=== PATIENT | male | born 1965 | race Caucasian/White ===

== ENCOUNTER 2022-12-24 08:47 | Inpatient (IN) | payer MEDICARE, MEDICAID ==
[2022-12-16 14:33] LABS: BASOPHILS # (AUTO) 0.1 X10'3 (0-0.2); BASOPHILS % (AUTO) 0.9 % (0-1); EOSINOPHILS # (AUTO) 0.2 X10'3 (0-0.9); EOSINOPHILS % (AUTO) 3.1 % (0-6); LYMPHOCYTES # (AUTO) 2.2 X10'3 (1.1-4.8); LYMPHOCYTES % (AUTO) 27.2 % (21-51); MEAN CORPUSCULAR HEMOGLOBIN 29.5 PG (27.0-31.0); MEAN CORPUSCULAR HGB CONC 33.3 g/dL (33.0-36.5); MEAN CORPUSCULAR VOLUME 88.7 FL (78-98); MEAN PLATELET VOLUME 7.4 FL (7.4-10.4); MONOCYTES # (AUTO) 0.5 X10'3 (0-0.9); MONOCYTES % (AUTO) 6.5 % (2-12); NEUTROPHILS % (AUTO) 62.3 % (42-75); PRE OP HEMATOCRIT 40.8 % (42.0-52.0); PRE OP HEMOGLOBIN 13.6 g/dL (14.0-17.9); PRE OP PLATELET COUNT 279 X10'3 (140-440); RED CELL DISTRIBUTION WIDTH 13.6 % (11.5-14.5)
[2022-12-16 14:42] LABS: ALBUMIN/GLOBULIN RATIO 1.3 (1.1-1.5); ALKALINE PHOSPHATASE 104 IU/L (46-116); BLOOD UREA NITROGEN 4 MG/DL (7-18); BUN/CREATININE RATIO 3.8 (10.0-20.0); CALCIUM 8.8 MG/DL (8.5-10.1); CHLORIDE 106 MMOL/L (99-107); CREATININE 1.04 MG/DL (0.60-1.10); PRE OP ALT 26 U/L (30-65); PRE OP ANION GAP 7 (8-16); PRE OP AST 14 U/L (10-37); PRE OP BILIRUB, TOTAL 0.3 MG/DL (0.0-1.0); PRE OP GLUCOSE 110 MG/DL (70-104); PRE OP POTASSIUM 3.8 MMOL/L (3.4-5.1); PRE OP SODIUM 140 MMOL/L (135-145); TOTAL CARBON DIOXIDE 26.7 MMOL/L (24-32); TOTAL PROTEIN 7.2 G/DL (6.4-8.2); eGFR 74 ML/MIN
[~2022-12-24] VITALS: Ht 182.9 cm; Wt 114.2 kg
[2022-12-24] VITALS (20 sets, daily range): BP systolic 112–143; BP diastolic 73–97; PULSE 58–91; RESP 12–18; TEMP 97.6–97.7; O2SAT 91–97
[~2022-12-24 08:47] MED LIST: AMIT100T61 PO; ARIP15TA19 PO; ASPI81TA52 PO; ATOR20TA66 PO; BENZ1TAB78 PO; CELE-28 PO; DILT180C66 PO; DOCUMENT DATE & TIME OF BETA-BLOCKER PO ONE; GABA600T13 PO; LATA2.5D14 EACHEYE; LISI40TA13 PO; MAGN500C4 PO; MESA400C4 PO; PANT-47 PO; PROP10TA10 PO; QUET-1 PO; TOPI25TA15 PO; albuterol 2.5 MG/3 ML nebule NEB ONE; cefazolin 2gm/D5W 100mL 100 ML IV ONE; famotidine 20mg tablet PO ONE; ringers solution, lacted 1,000 ML IV SCH; tranexamic acid 650mg tablet PO ONE; vancomycin 1,500 MG in NS 300ml IV soln IV ONE
--- NOTE | 2022-12-24 10:15 | NUR ---
PT STATES HE USED THE [facility], AND SHOWERED FOR THE LAST 5 DAYS PER T[employer] JOINT PROTOCOL RECOMMENDATIONS, HE DENIED DECREASED SENSATION TO LEFT HAND/ARM, DID NOT WATCH THE DVD THIS IS A REVISION, HE HAD THIS SX 3 MONTHS AGO. Addendum: 12/24/22 at 1543 by Brittany Nicholson RN Amended: Links added.
[2022-12-24] MEDS ORDERED: ketorolac trometh. 30mg/ml inj. ONE (12:26)
[2022-12-24] MEDS ORDERED: ROPIVAcaine 0.5% (5mg/ml) 30ml vial ONE ×2 (12:26→12:36)
[2022-12-24] MEDS ORDERED: ROPIVAcaine 0.5% (5mg/ml) 30ml vial IJ ONE (12:30)
[2022-12-24] MEDS ORDERED: fentaNYL/PF 50MCG/1 ML 2ML syringe ONE (12:35)
[2022-12-24] MEDS ORDERED: midazolam 1 mg/ML 2ml injection ONE ×2 (12:35→12:36)
[2022-12-24] MEDS ORDERED: propofol inj 20 ML IV ONE (12:36)
[2022-12-24] MEDS ORDERED: proCHLORperazine 10 MG/2 ml inj IV PRN (12:50)
[2022-12-24] MEDS ORDERED: morphine 2 MG/ML inj. syringe IV PRN (12:50)
[2022-12-24] MEDS ORDERED: ondansetron/PF 4mg/2ml inj IV PRN ×2 (12:50→14:45)
[2022-12-24] MEDS ORDERED: meperidine/PF 25mg/ml syringe IV PRN ×3 (12:50)
[2022-12-24] MEDS ORDERED: ROPIVAcaine 0.2% (10 MG/5 ML) BOLUS INJECTION INTERSCALE PRN (12:50)
[2022-12-24] MEDS ORDERED: ROPIVAcaine 0.2%/PF PUMP/bolus 545 ML INTERSCALE SCH (12:50)
[2022-12-24] MEDS ORDERED: morphine 4 MG/ML inj SYRINge IV PRN (12:50)
[2022-12-24] MEDS ORDERED: ringers solution, lacted 1,000 ML IV SCH (12:50)
[2022-12-24] MEDS ORDERED: sevoflurane 250ml liquid IH ONE (12:53)
[2022-12-24] MEDS ORDERED: ondansetron/PF 4mg/2ml inj ONE (14:27)
[2022-12-24] MEDS ORDERED: dexamethasone sod phosphate 4mg/ml inj. ONE (14:27)
--- NOTE | 2022-12-24 14:38 | NUR ---
Received from OR via HOSPITAL BED, accompanied by Anesthesiologist and report given by JULIAN Anesthesiologist. PATIENT WAKING UP, DENIES PAIN, V/S WNL, SCD ON , PIV 20G RIGHT HAND, DRESSING SHOULDER WRAP TO LEFT SIDE C/D/I W/ ONQ AT 2ML/HR AND COLD POWDER PACK AND ARM SLING. Addendum: 12/24/22 at 1507 by Yusef Lackey RN Amended: Links added.
[2022-12-24] MEDS ORDERED: HYDROmorphone 1 mg/ml syringe IV PRN (14:45)
[2022-12-24] MEDS ORDERED: acetaminophen 325mg tablet PO PRN (14:45)
[2022-12-24] MEDS ORDERED: bisacodyl 10mg suppository rectal RC PRN (14:45)
[2022-12-24] MEDS ORDERED: oxyCODONE IR 5mg (immed. release) tablet PO PRN ×2 (14:45)
[2022-12-24] MEDS ORDERED: diphenhydrAMINE 25mg capsule PO PRN ×2 (14:45)
[2022-12-24] MEDS ORDERED: naloxone 0.4 mg/ml inj IV PRN (14:45)
[2022-12-24] MEDS ORDERED: magnesium hydroxide 30ml (MOM) UD suspension PO PRN (14:45)
[2022-12-24] MEDS ORDERED: HYDROmorphone inj. 0.5 MG/0.5 ML DISP.SYRIN IV PRN (14:45)
[2022-12-24] MEDS ORDERED: HYDROcodone/acetaminophen 10/325mg tab PO PRN ×2 (14:45)
--- NOTE | 2022-12-24 16:38 | NUR ---
PATIENT HAS MET ALL CRITERIA FOR TRANSFER TO ORTHO FLOOR. VSS. DRESSINGS INTACT. BED LOW, CALL LIGHT PRESENT AND 2 RAILS UP. RN PRESENT TO ACCEPT CARE OF PATIENT AND REPORT HAS BEEN CALLED. ALL QUESTIONS ANSWERED TO ACCEPTING RN. Addendum: 12/24/22 at 1648 by Yusef Lackey RN Amended: Links added.
--- NOTE | 2022-12-24 18:00 | NUR ---
I have reviewed and agree with documentation by Puja Gonzalez LVN.
[2022-12-24] MEDS ORDERED: vancomycin/NS 1 GM ADD-VANTAGE 250 ML IV SCH (20:00)
[2022-12-24] MEDS: diltiazem CD 180mg cap (once-daily) PO SCH (20:00)
[2022-12-24] MEDS: mesalamine 400mg delayed-release capsule PO SCH (20:00)
[2022-12-24] MEDS: potassium cl 20mEq in 1/2 NS 1,000 ML IV SCH ×2 (20:59→22:45)
[2022-12-24] MEDS ORDERED: ARIPIPRAZOLE 15 MG TABLET PO SCH (21:00)
[2022-12-24] MEDS ORDERED: amitriptyline 50mg tablet PO SCH (21:00)
[2022-12-24] MEDS ORDERED: latanoprost 0.005% 2.5ml ophthalmic drops EACHEYE SCH (21:00)
[2022-12-24] MEDS ORDERED: quetiapine 100mg tablet PO SCH (21:00)
[2022-12-24] MEDS ORDERED: propranolol 10mg tablet PO SCH (21:00)
[2022-12-24] MEDS ORDERED: sennosides 8.6mg tablet PO SCH (21:00)
[2022-12-24] MEDS ORDERED: atorvastatin 20mg tablet PO SCH (21:00)
[2022-12-24] MEDS ORDERED: magnesium oxide 400mg tablet PO SCH (21:00)
[2022-12-24] MEDS ORDERED: topiramate 25mg tablet PO SCH (21:00)
[2022-12-24] MEDS ORDERED: benztropine 1mg tablet PO SCH (21:00)
[2022-12-24] MEDS: ceFAZolin/D5W- 1GM premix 50 ML IV SCH (21:12)
[2022-12-24] MEDS: acetaminophen 325mg tablet PO SCH (21:17)
[2022-12-24] MEDS: gabapentin 300mg capsule PO SCH (21:18)
[2022-12-25 02:00] VITALS: BP 121/81; PULSE 84; RESP 18; TEMP 97.8; O2SAT 91
[2022-12-25] MEDS: acetaminophen 325mg tablet PO SCH ×2 (02:30→08:40)
[2022-12-25] MEDS: ceFAZolin/D5W- 1GM premix 50 ML IV SCH (04:54)
[2022-12-25 06:00] VITALS: BP 132/94; PULSE 85; RESP 16; TEMP 98.3; O2SAT 95
[2022-12-25] MEDS: potassium cl 20mEq in 1/2 NS 1,000 ML IV SCH (06:45)
[2022-12-25 07:06] LABS: BASOPHILS % (AUTO) 0.2 % (0-1); EOSINOPHILS % (AUTO) 0 % (0-6); HEMATOCRIT 41.2 % (42.0-52.0); HEMOGLOBIN 13.6 g/dl (14.0-17.9); LYMPHOCYTES # (AUTO) 0.9 X10'3 (1.1-4.8); LYMPHOCYTES % (AUTO) 4.6 % (21-51); MEAN CORPUSCULAR HEMOGLOBIN 29.3 PG (27.0-31.0); MEAN CORPUSCULAR VOLUME 88.9 FL (78-98); MEAN PLATELET VOLUME 8.4 FL (7.4-10.4); MONOCYTES # (AUTO) 0.5 X10'3 (0-0.9); MONOCYTES % (AUTO) 2.8 % (2-12); NEUTROPHILS % (AUTO) 92.4 % (42-75); PLATELET COUNT 271 X10'3 (140-440); RED BLOOD COUNT 4.64 X10'6 (4.70-6.10); RED CELL DISTRIBUTION WIDTH 13.5 % (11.5-14.5); WHITE BLOOD COUNT 18.4 X10'3 (4.5-11.0)
[2022-12-25 07:15] LABS: ANION GAP 12 (8-16); CHLORIDE 104 MMOL/L (99-107); SODIUM 136 MMOL/L (135-145); TOTAL CARBON DIOXIDE 20.1 MMOL/L (24-32)
[2022-12-25 08:00] VITALS: RESP 16; O2SAT 95
[2022-12-25] MEDS ORDERED: pantoprazole 40mg Tablet.DR PO SCH (08:00)
[2022-12-25] MEDS: mesalamine 400mg delayed-release capsule PO SCH (08:00)
[2022-12-25] MEDS ORDERED: propranolol 10mg tablet PO SCH (08:00)
[2022-12-25] MEDS ORDERED: celeCOXIB 100mg capsule PO SCH (08:00)
[2022-12-25] MEDS ORDERED: lisinopril 20mg tablet PO SCH (08:00)
[2022-12-25] MEDS ORDERED: topiramate 25mg tablet PO SCH (08:00)
[2022-12-25] MEDS ORDERED: aspirin 325mg tablet PO SCH (08:30)
[2022-12-25] MEDS: gabapentin 300mg capsule PO SCH (08:40)
[2022-12-25] MEDS: diltiazem CD 180mg cap (once-daily) PO SCH (08:40)
[2022-12-25 10:00] VITALS: BP 137/93; PULSE 86; RESP 18; TEMP 98.4; O2SAT 95
--- NOTE | 2022-12-25 11:00 | NUR ---
I have reviewed and agree with interventions, assessments,and documentation by Angélica Charlton LVN.
--- NOTE | 2022-12-25 11:37 | NUR ---
Patient discharged home via pov with family, all personal belongings sent with, piv dc'd tip in tact. Patient alert and appropriate at the time of discharge.
--- NOTE | 2022-12-25 14:49 | NUR ---
Joint surgery consult: Pt is s/p shoulder surgery per EMR. Pt was discharged earlier today therefore unable to provide high protein education in person. Mailed written high protein education with RD contact information to patient's home address provided in EMR Addendum: 12/25/22 at [address] Amended: Links added.
[2022-12-26] MEDS ORDERED: acetaminophen 325mg tablet PO PRN (14:45)
== END 2022-12-25 11:40 | disposition home or self-care (01) | DRG 483 ==
LOC: PAS IN 08:47 → ORTHO 4S 15:40
PROVIDERS: ADMIT Orthopaedic Surgery; ATTEND Orthopaedic Surgery
PROC: 0RRK0JZ Replacement of Left Shoulder Joint with Synthetic Substitute, Open Approach (ICD-10-PCS; 2022-12-24)
PROC: 3E0T3BZ Introduction of Anesthetic Agent into Peripheral Nerves and Plexi, Percutaneous Approach (ICD-10-PCS; 2022-12-24)
PROC: 0RPK0J6 Removal of Synthetic Substitute from Left Shoulder Joint, Humeral Surface, Open Approach (ICD-10-PCS; principal; 2022-12-24 12:53)
DX: T84.028A Dislocation of other internal joint prosthesis, initial encounter (principal); M19.012 Primary osteoarthritis, left shoulder; X58.XXXA Exposure to other specified factors, initial encounter; Y83.8 Other surgical procedures as the cause of abnormal reaction of the patient, or of later complication, without mention of misadventure at the time of the procedure; Y92.89 Other specified places as the place of occurrence of the external cause
CPT/HCPCS: 36415; 71046; 80051; 80053; 82948; 85025; 87070; 87075; 87081; 93005; 94640; 94760; 97110; 97161; 97530; A6258; A6449; G0378; J0690; J1100; J1885; J2175; J2250; J2270; J2405; J2704; J2795; J3010; J3370; J3480; J7120